=== PATIENT | female | born 2000 | race African-American/Black ===

== ENCOUNTER 2022-08-11 16:16 | Emergency (ER) | payer MEDICAID ==
[~2022-08-11] VITALS: Ht 165.1 cm; Wt 48.0 kg
[2022-08-11 16:37] VITALS: BP 118/73
[2022-08-11] MEDS ORDERED: ONDANSETRON ODT 4 MG TAB PO ONE (21:30)
[2022-08-11] MEDS ORDERED: IPRATROPIUM BROM 0.5 MG/2.5ML INH SOL NEB ONE (22:15)
[2022-08-11] MEDS ORDERED: ALBUTEROL SULF 2.5 MG/0.5ML(0.5%) NEB SOLN NEB ONE (22:15)
[2022-08-11] MEDS ORDERED: PRED20TA2 PO (22:48)
[2022-08-11] MEDS ORDERED: ALBUAER3 IN (22:48)
== END 2022-08-11 22:55 | disposition home or self-care (01) ==
LOC: ER 16:16
DX: J10.1 Influenza due to other identified influenza virus with other respiratory manifestations (principal); Z20.822 Contact with and (suspected) exposure to COVID-19
CPT/HCPCS: 36415; 71045; 87426; 87804; 94640; 99284; J7644; Q0162